=== PATIENT | female | born 1965 | race Caucasian/White ===

== ENCOUNTER 2017-03-22 07:24 | Outpatient (CLI) | payer OTHER ==
[2017-03-24 20:06] LABS: TEST RESULT REPORT
[2017-03-25 00:43] LABS: HDL LARGE 6344 nmol/L (5038-17886); LDL MEDIUM 224 nmol/L (121-397); LDL PARTICLE NUMBER 1459 nmol/L (1016-2185); LDL PATTERN A Pattern (A); LDL PEAK SIZE 226.7 Angstrom (> OR = 218.2); LDL SMALL 130 nmol/L (115-386)
== END 2017-03-22 07:25 | disposition home or self-care (01) ==
LOC: LAB.F 07:24
PROVIDERS: ATTEND Naturopath
DX: Z13.220 Encounter for screening for lipoid disorders (principal)
CPT/HCPCS: 36415; 81599; 82465; 83704; 83718; 84478

== ENCOUNTER 2017-12-18 08:33 | Outpatient (CLI) | payer SELFPAY | END 2017-12-18 08:34 | disposition home or self-care (01) | LOC: LAB 08:33 | DX: Z01.89 Encounter for other specified special examinations (principal) | CPT/HCPCS: 36415 ==

== ENCOUNTER 2019-07-25 10:25 | Outpatient (CLI) | payer OTHER | END 2019-07-25 10:26 | disposition home or self-care (01) | LOC: LAB.S 10:25 | PROVIDERS: ATTEND Naturopath | DX: N95.1 Menopausal and female climacteric states (principal); Z79.890 Hormone replacement therapy; Z13.21 Encounter for screening for nutritional disorder; R68.82 Decreased libido; R53.83 Other fatigue; E06.3 Autoimmune thyroiditis; E55.9 Vitamin D deficiency, unspecified; Z13.220 Encounter for screening for lipoid disorders ==

== ENCOUNTER 2019-08-07 07:45 | Outpatient (CLI) | payer OTHER ==
[2019-08-07 10:04] LABS: BASOPHILS % (AUTO) 1.5 %; EOSINOPHILS # (AUTO) 0.1 10^3/uL (0.0-0.7); EOSINOPHILS % (AUTO) 2.5 %; HGB - HEMOGLOBIN 12.6 g/dL (12.0-16.0); LYMPHOCYTES # (AUTO) 0.6 10^3/uL (1.5-3.5); LYMPHOCYTES % (AUTO) 22.9 %; MEAN CORPUSCULAR HEMOGLOBIN 31.5 pg (27.0-31.0); MEAN CORPUSCULAR HGB CONC 34.4 g/dL (32.0-36.0); MEAN CORPUSCULAR VOLUME 91.5 fL (81.0-99.0); MEAN PLATELET VOLUME 9.2 fL (7.9-10.8); MONOCYTES # (AUTO) 0.2 10^3/uL (0.0-1.0); MONOCYTES % (AUTO) 8.4 %; NEUTROPHILS # (AUTO) 1.8 10^3/uL (1.5-6.6); NEUTROPHILS % (AUTO) 64.3 %; PLT - PLATELET COUNT 230 10^3/uL (130-450); RED CELL DISTRIBUTION WIDTH 12.1 % (12.0-15.0); WHITE BLOOD COUNT 2.8 x10^3/uL (4.8-10.8)
[2019-08-07 10:06] LABS: RBC MORPHOLOGY (MULTIPLE) 1+ ANISOCYTOSIS (NORMAL)
[2019-08-07 10:18] LABS: ALBUMIN 4.4 g/dL (3.2-5.5); ALBUMIN/GLOBULIN RATIO 1.7 (1.0-2.2); ALKALINE PHOSPHATASE 53 IU/L (42-121); ALT ALANINE AMINOTRANSFERASE 14 IU/L (10-60); AST ASPARTATE AMINOTRANSFERASE 20 IU/L (10-42); BILIRUBIN,TOTAL 1.2 mg/dL (0.2-1.0); BUN - BLOOD UREA NITROGEN 19 mg/dL (6-20); CALCIUM 9.6 mg/dL (8.5-10.3); CARBON DIOXIDE - CO2 24 mmol/L (21-32); CHLORIDE 102 mmol/L (101-111); CHOL/HDL RATIO 3.4 (<4.4); CHOLESTEROL 261 mg/dL; CREATININE 0.7 mg/dL (0.4-1.0); GFR - MDRD 87 (>89); GLUCOSE 88 mg/dL (70-100); HDL CHOLESTEROL 76 mg/dL; SODIUM 136 mmol/L (135-145)
[2019-08-07 10:27] LABS: THYROID STIMULATING HORMONE 1.82 uIU/mL (0.34-5.60)
[2019-08-07 10:29] LABS: FREE T4 (FREE THYROXINE) 0.85 ng/dL (0.58-1.64)
[2019-08-08 10:59] LABS: HOMOCYSTEINE 9.3 umol/L (<10.4)
== END 2019-08-07 07:46 | disposition home or self-care (01) ==
LOC: LAB.S 07:45
PROVIDERS: ATTEND Naturopath
DX: E06.3 Autoimmune thyroiditis (principal); R53.83 Other fatigue; R68.82 Decreased libido; Z13.21 Encounter for screening for nutritional disorder; N95.1 Menopausal and female climacteric states; Z79.890 Hormone replacement therapy; E55.9 Vitamin D deficiency, unspecified
CPT/HCPCS: 36415; 80053; 80061; 81599; 82306; 82627; 82670; 83090; 83721; 84144; 84402; 84403; 84439; 84443; 84481; 84482; 85025; 86376

== ENCOUNTER 2021-06-07 15:31 | Outpatient (CLI) | payer OTHER ==
--- NOTE | 2021-06-07 15:28 | Ultrasound Report ---
PROCEDURE: Pelvic w/Transvaginal INDICATIONS: UTERINE FIBROIDS, MENOPAUSAL AND FEMALE CLIMACTERI TECHNIQUE: Real-time scanning was performed of the pelvic organs, with image documentation. Additional endovagi nal scanning was necessary due to incomplete visualization of the adnexal and endometrial structures by transabdominal scanning. COMPARISON: August 13, 2015. FINDINGS: UTERUS: Anteverted, heterogeneous echogenicity, and measures 8 x 4.2 x 5.6 cm. The endometrium measur es 3.8 mm. 2 ovoid lesions are again seen within the myometrium, largest measuring 2.7 x 2.5 x 2 cm, compatible with fibroids. RIGHT OVARY: 1.9 x 1.9 x 1 cm. Color-flow projects over the ovarian tissue. LEFT OVARY: 2.4 x 1.2 x 1.8 cm. Color-flow projects over the ovarian tissue. OTHER: None. IMPRESSION: 1.Myomatous change of the uterus. Reviewed by: Bimal Daigle MD on 06/07/2021 3:26 PM PST Approved by: Bimal Daigle MD on 06/07/2021 3:26 PM PST Station ID: [id number]
--- NOTE | 2021-06-07 16:39 | DEXA Report ---
PROCEDURE: Dexa Spine and/or Hip INDICATIONS: UTERINE FIBROIDS,MENOPAUSAL AND FEMALE CLIMACTERIC TECHNIQUE: Dual energy x-ray absorptiometry (DXA) was performed on a [employer] System. Regions measur ed are the AP Spine, femoral neck, and if needed forearm. COMPARISON: None. FINDINGS: Lumbar Spine: Bone Mineral Density 1.066 g/cm/cm,T score -0.9. Left Hip: Bone Mineral Density 0.881 g/cm/cm,T score -1.0. Left Femoral Neck: Bone Mineral Density 0.842 g/cm/cm, T score -1.4. (T score greater or equal to -1.0: NORMAL) (T score from -1.1 to -2.4: OSTEOPENIA) (T score less than or equal to -2.5 to: OSTEOPOROSIS) Impression: Osteopenia. Patients with diagnosis of osteoporosis or osteopenia should have regular bone mineral density assess ment. For those eligible for Medicare, routine testing is allowed once every 2 years. Testing frequ ency can be increased for patients who have rapidly progressing disease or for those who are receivin g medical therapy to restore bone mass. Reviewed by: Cachorro Knight MD on 06/07/2021 4:37 PM PST Approved by: Cachorro Knight MD on 06/07/2021 4:37 PM PST Station ID: [id number]
== END 2021-06-07 15:32 | disposition home or self-care (01) ==
LOC: DI 15:31
PROVIDERS: ATTEND Naturopath
DX: D25.9 Leiomyoma of uterus, unspecified (principal); M85.89 Other specified disorders of bone density and structure, multiple sites; N95.1 Menopausal and female climacteric states

== ENCOUNTER 2022-09-19 07:11 | Outpatient (CLI) | payer OTHER ==
[2022-09-19 14:46] LABS: BASOPHILS # (AUTO) 0.1 10^3/uL (0.0-0.1); BASOPHILS % (AUTO) 1.7 %; EOSINOPHILS # (AUTO) 0.1 10^3/uL (0.0-0.7); EOSINOPHILS % (AUTO) 3.3 %; HCT - HEMATOCRIT 37.3 % (37.0-47.0); HGB - HEMOGLOBIN 12.6 g/dL (12.0-16.0); LYMPHOCYTES # (AUTO) 0.9 10^3/uL (1.5-3.5); LYMPHOCYTES % (AUTO) 30.9 %; MEAN CORPUSCULAR HEMOGLOBIN 31.9 pg (27.0-31.0); MEAN CORPUSCULAR HGB CONC 33.8 g/dL (32.0-36.0); MEAN CORPUSCULAR VOLUME 94.4 fL (81.0-99.0); MEAN PLATELET VOLUME 9.2 fL (7.9-10.8); MONOCYTES # (AUTO) 0.3 10^3/uL (0.0-1.0); NEUTROPHILS # (AUTO) 1.7 10^3/uL (1.5-6.6); NEUTROPHILS % (AUTO) 54.8 %; PLT - PLATELET COUNT 235 10^3/uL (130-450); RED BLOOD COUNT 3.95 10^6/uL (4.20-5.40); RED CELL DISTRIBUTION WIDTH 12.2 % (12.0-15.0)
[2022-09-19 15:20] LABS: CHOL/HDL RATIO 2.9 (<4.4); CHOLESTEROL 271 mg/dL; GLUCOSE 97 mg/dL (70-100); HDL CHOLESTEROL 92 mg/dL; TRIGLYCERIDES 35 mg/dL
[2022-09-19 15:37] LABS: THYROID STIMULATING HORMONE 3.4 uIU/mL (0.34-5.60)
[2022-09-19 15:38] LABS: FREE T3 3.33 pg/mL (2.5-3.9)
[2022-09-19 15:39] LABS: FREE T4 (FREE THYROXINE) 0.9 ng/dL (0.58-1.64)
[2022-09-19 15:43] LABS: FERRITIN 106.7 ng/mL (11.0-306.8)
[2022-09-20 07:10] LABS: ESTRADIOL 17.8 pg/mL (.)
[2022-09-20 19:07] LABS: THYROGLOBULIN ANTIBODY 1.7 IU/mL (0.0-0.9)
[2022-09-20 22:07] LABS: FREE TESTOSTERONE(DIRECT) 1.2 pg/mL (0.0-4.2)
== END 2022-09-19 07:12 | disposition home or self-care (01) ==
LOC: LAB.S 07:11
PROVIDERS: ATTEND Naturopath
DX: E78.2 Mixed hyperlipidemia (principal); Z79.890 Hormone replacement therapy; F51.04 Psychophysiologic insomnia; E55.9 Vitamin D deficiency, unspecified; M85.89 Other specified disorders of bone density and structure, multiple sites
CPT/HCPCS: 36415; 80061; 82533; 82670; 82679; 82728; 82947; 83721; 84144; 84260; 84402; 84403; 84439; 84443; 84481; 85025; 86376; 86800

== ENCOUNTER 2023-04-18 09:17 | Outpatient (CLI) | payer OTHER ==
[2023-04-18 14:44] LABS: BASOPHILS # (AUTO) 0.1 10^3/uL (0.0-0.1); BASOPHILS % (AUTO) 2.3 %; EOSINOPHILS # (AUTO) 0.1 10^3/uL (0.0-0.7); EOSINOPHILS % (AUTO) 1.9 %; HGB - HEMOGLOBIN 12.6 g/dL (12.0-16.0); LYMPHOCYTES # (AUTO) 0.9 10^3/uL (1.5-3.5); LYMPHOCYTES % (AUTO) 28.3 %; MEAN CORPUSCULAR HEMOGLOBIN 31.7 pg (27.0-31.0); MEAN CORPUSCULAR HGB CONC 33.2 g/dL (32.0-36.0); MEAN CORPUSCULAR VOLUME 95.7 fL (81.0-99.0); MEAN PLATELET VOLUME 9.2 fL (7.9-10.8); MONOCYTES # (AUTO) 0.3 10^3/uL (0.0-1.0); MONOCYTES % (AUTO) 10.3 %; NEUTROPHILS # (AUTO) 1.8 10^3/uL (1.5-6.6); NEUTROPHILS % (AUTO) 56.9 %; PLT - PLATELET COUNT 240 10^3/uL (130-450); RED BLOOD COUNT 3.97 10^6/uL (4.20-5.40); RED CELL DISTRIBUTION WIDTH 12.1 % (12.0-15.0); WHITE BLOOD COUNT 3.1 x10^3/uL (4.8-10.8)
[2023-04-18 16:20] LABS: THYROID STIMULATING HORMONE 2.3 uIU/mL (0.34-5.60)
[2023-04-19 07:10] LABS: ESTRADIOL 20.1 pg/mL (.); PROGESTERONE 5.9 ng/mL (.)
[2023-04-19 19:07] LABS: THYROGLOBULIN ANTIBODY 1.6 IU/mL (0.0-0.9)
== END 2023-04-18 09:18 | disposition home or self-care (01) ==
LOC: LAB.S 09:17
PROVIDERS: ATTEND Naturopath
DX: D51.3 Other dietary vitamin B12 deficiency anemia (principal); E06.3 Autoimmune thyroiditis; Z79.890 Hormone replacement therapy
CPT/HCPCS: 36415; 82533; 82670; 84144; 84439; 84443; 84481; 85025; 86376; 86800

== ENCOUNTER 2023-09-12 07:12 | Outpatient (CLI) | payer OTHER ==
[2023-09-12 15:08] LABS: BASOPHILS # (AUTO) 0.1 10^3/uL (0.0-0.1); BASOPHILS % (AUTO) 1.7 %; EOSINOPHILS # (AUTO) 0.1 10^3/uL (0.0-0.7); EOSINOPHILS % (AUTO) 2.9 %; HCT - HEMATOCRIT 36.4 % (37.0-47.0); HGB - HEMOGLOBIN 12.4 g/dL (12.0-16.0); LYMPHOCYTES # (AUTO) 1.1 10^3/uL (1.5-3.5); LYMPHOCYTES % (AUTO) 30.5 %; MEAN CORPUSCULAR HEMOGLOBIN 32.4 pg (27.0-31.0); MEAN CORPUSCULAR HGB CONC 34.1 g/dL (32.0-36.0); MONOCYTES # (AUTO) 0.3 10^3/uL (0.0-1.0); MONOCYTES % (AUTO) 9.9 %; NEUTROPHILS # (AUTO) 1.9 10^3/uL (1.5-6.6); NEUTROPHILS % (AUTO) 54.1 %; PLT - PLATELET COUNT 298 10^3/uL (130-450); RED BLOOD COUNT 3.83 10^6/uL (4.20-5.40); RED CELL DISTRIBUTION WIDTH 12.9 % (12.0-15.0); WHITE BLOOD COUNT 3.4 x10^3/uL (4.8-10.8)
[2023-09-12 15:15] LABS: CA 125 12.7 U/mL (0.5-35.0)
[2023-09-12 15:16] LABS: THYROID STIMULATING HORMONE 7.44 uIU/mL (0.34-5.60)
[2023-09-12 15:22] LABS: FERRITIN 92.4 ng/mL (11.0-306.8)
[2023-09-12 16:18] LABS: ALBUMIN 4.3 g/dL (3.2-5.5); ALBUMIN/GLOBULIN RATIO 1.5 (1.0-2.2); ALKALINE PHOSPHATASE 49 IU/L (42-121); ALT ALANINE AMINOTRANSFERASE 10 IU/L (10-60); AST ASPARTATE AMINOTRANSFERASE 18 IU/L (10-42); BILIRUBIN,TOTAL 0.8 mg/dL (0.2-1.0); BUN - BLOOD UREA NITROGEN 17 mg/dL (6-20); CALCIUM 10.4 mg/dL (8.5-10.3); CARBON DIOXIDE - CO2 27 mmol/L (21-32); CHLORIDE 105 mmol/L (101-111); CHOL/HDL RATIO 3.5 (<4.4); CHOLESTEROL 266 mg/dL; CREATININE 0.9 mg/dL (0.6-1.3); CRP HIGH SENSITIVITY 0.46 mg/L; GFR - MDRD 64 (>89); GLUCOSE 91 mg/dL (74-104); HDL CHOLESTEROL 76 mg/dL; LDL CHOLESTEROL,CALCULATED 175 mg/dL; LDL/HDL RATIO 2.3 (<4.4); SODIUM 138 mmol/L (135-145); TOTAL PROTEIN 7.2 g/dL (6.4-8.9); TRIGLYCERIDES 76 mg/dL (48-352); VLDL CHOLESTEROL 15 mg/dL
[2023-09-12 20:28] LABS: ESTIMATED AVERAGE GLUCOSE 97 mg/dL (70-100)
[2023-09-13 07:11] LABS: ESTRADIOL 27.2 pg/mL (.)
[2023-09-13 08:11] LABS: PROGESTERONE 6.7 ng/mL (.)
== END 2023-09-12 07:13 | disposition home or self-care (01) ==
LOC: LAB.S 07:12
PROVIDERS: ATTEND Naturopath
DX: D51.3 Other dietary vitamin B12 deficiency anemia (principal); E06.3 Autoimmune thyroiditis; Z79.890 Hormone replacement therapy
CPT/HCPCS: 36415; 80053; 80061; 82306; 82533; 82627; 82670; 82679; 82728; 83036; 83721; 84144; 84402; 84403; 84439; 84443; 84481; 85025; 86141; 86304